=== PATIENT | male | born 1990 | race Caucasian/White ===

== ENCOUNTER 2022-11-19 11:00 | Emergency (ER) | payer SELFPAY ==
[2022-11-19] MEDS ORDERED: Sodium Chloride 0.9% 10 ML Syringe FLUSH PRN (11:23)
[2022-11-19] MEDS ORDERED: Haloperidol Lactate 5 MG/ML SDV IVPUSH ONE ×2 (11:23→12:49)
[2022-11-19 11:58] LABS: ESTIMATED GFR 55 mL/min (>60)
[2022-11-19 12:30] LABS: CORONAVIRUS COVID-19 NAA NEGATIVE (NEGATIVE)
[2022-11-19] MEDS ORDERED: Sodium Chloride 0.9% 1,000 ML IV SCH (13:00)
== END 2022-11-19 15:09 | disposition home or self-care (01) ==
LOC: JP.ED 11:00
DX: R10.11 Right upper quadrant pain (principal); R11.2 Nausea with vomiting, unspecified; E86.0 Dehydration; E87.6 Hypokalemia; F12.90 Cannabis use, unspecified, uncomplicated; Z20.822 Contact with and (suspected) exposure to COVID-19
CPT/HCPCS: 0241U; 36415; 74176; 80053; 83605; 83690; 85025; 86140; 96361; 96374; 96376; 99284; J1630; J3490; J7030

== ENCOUNTER 2022-11-21 10:27 | Observation (INO) | payer SELFPAY ==
[2022-11-21] MEDS ORDERED: Haloperidol Lactate 5 MG/ML SDV IVPUSH ONE ×2 (10:53→14:03)
[2022-11-21] MEDS ORDERED: Sodium Chloride 0.9% 10 ML Syringe FLUSH PRN ×2 (10:53→15:56)
[2022-11-21] MEDS ORDERED: HYDROmorphone 1 MG/ML Syringe IVPUSH ONE ×2 (10:55→14:03)
[2022-11-21] MEDS ORDERED: Sodium Chloride 0.9% 1,000 ML IV SCH ×3 (11:00→14:30)
[2022-11-21 11:30] LABS: ESTIMATED GFR 76 mL/min (>60)
[2022-11-21] MEDS ORDERED: Potassium Chloride 10 MEQ in Premix Bag 1 BAG IV ONE ×2 (11:44→14:16)
[2022-11-21 11:52] LABS: CORONAVIRUS COVID-19 NAA NEGATIVE (NEGATIVE)
[2022-11-21] MEDS ORDERED: Nicotine Polacrilex 2 MG Gum CHEW PRN (15:23)
[2022-11-21] MEDS ORDERED: Acetaminophen 325 MG Tab PO PRN (15:56)
[2022-11-21] MEDS: Ondansetron 4 MG/2 ML SDV IV PRN (16:12)
[2022-11-21] MEDS: Nicotine 14 MG/24 Hr Patch TRDERM SCH (16:12)
[2022-11-21] MEDS: oxyCODONE 5 MG Tab PO PRN (16:12)
[2022-11-21] MEDS: Potassium Chloride 20 MEQ Tab.ER PO ONE ×3 (17:22→20:16)
[2022-11-21] MEDS: Pantoprazole 40 MG Vial IVPUSH SCH (17:22)
[2022-11-21] MEDS: Potassium Chloride 10 MEQ in Premix Bag 1 BAG IV SCH ×4 (17:23→21:33)
[2022-11-21] MEDS: LORazepam 2 MG/ML SDV IV PRN (17:33)
[2022-11-21] MEDS: traZODone 50 MG Tab PO SCH (20:16)
[2022-11-21] MEDS: Methocarbamol 500 MG Tab PO SCH (20:16)
[2022-11-21] MEDS: hydrOXYzine HCl 25 MG Tab PO SCH (20:17)
[2022-11-21] MEDS: Gabapentin 300 MG Cap PO SCH (20:17)
[2022-11-21] MEDS: Propranolol 40 MG Tab PO SCH (20:17)
[2022-11-21] MEDS: Sodium Chloride 0.9% 1,000 ML IV SCH (22:40)
[2022-11-22] MEDS: Ondansetron 4 MG/2 ML SDV IV PRN ×3 (05:07→18:16)
[2022-11-22] MEDS: Pantoprazole 40 MG Vial IVPUSH SCH ×2 (05:08→16:10)
[2022-11-22] MEDS: Sodium Chloride 0.9% 1,000 ML IV SCH ×2 (05:11→12:35)
[2022-11-22] MEDS ORDERED: Propofol 200 MG/20 ML SDV ONE (06:50)
[2022-11-22] MEDS ORDERED: fentaNYL 50 MCG/ML SDV ONE (06:50)
[2022-11-22] MEDS ORDERED: Midazolam 1 MG/ML 2 ML SDV ONE (06:50)
[2022-11-22] MEDS: oxyCODONE 5 MG Tab PO PRN ×3 (08:08→20:14)
[2022-11-22] MEDS ORDERED: Scopolamine 1.5 MG Transdermal Patch TOP SCH (08:30)
[2022-11-22] MEDS: LORazepam 2 MG/ML SDV IV PRN ×2 (08:57→20:14)
[2022-11-22] MEDS: Gabapentin 300 MG Cap PO SCH ×3 (09:49→20:16)
[2022-11-22] MEDS: hydrOXYzine HCl 25 MG Tab PO SCH ×3 (09:49→20:17)
[2022-11-22] MEDS: Methocarbamol 500 MG Tab PO SCH ×3 (09:50→20:14)
[2022-11-22] MEDS: Propranolol 40 MG Tab PO SCH ×2 (09:50→20:17)
[2022-11-22] MEDS: Nicotine 14 MG/24 Hr Patch TRDERM SCH (09:53)
[2022-11-22] MEDS: traZODone 50 MG Tab PO SCH (20:14)
[2022-11-23] MEDS: Sodium Chloride 0.9% 1,000 ML IV SCH (00:41)
[2022-11-23] MEDS: oxyCODONE 5 MG Tab PO PRN ×2 (02:12→07:20)
[2022-11-23] MEDS: Ondansetron 4 MG/2 ML SDV IV PRN ×2 (02:12→07:20)
[2022-11-23] MEDS: Pantoprazole 40 MG Vial IVPUSH SCH (04:49)
[2022-11-23] MEDS: hydrOXYzine HCl 25 MG Tab PO SCH ×2 (08:14→14:56)
[2022-11-23] MEDS: Gabapentin 300 MG Cap PO SCH ×2 (08:15→14:56)
[2022-11-23] MEDS: Propranolol 40 MG Tab PO SCH (08:15)
[2022-11-23] MEDS: Nicotine 14 MG/24 Hr Patch TRDERM SCH (08:15)
[2022-11-23] MEDS ORDERED: VERIFY SCOP PATCH TOP SCH (09:00)
[2022-11-23] MEDS: Methocarbamol 500 MG Tab PO SCH ×2 (09:13→14:56)
== END 2022-11-23 16:52 | disposition home or self-care (01) ==
LOC: JP.ED 10:27 → JP.MS 14:29
PROVIDERS: ADMIT Hospitalist; ATTEND Hospitalist
DX: K31.89 Other diseases of stomach and duodenum (principal); K44.9 Diaphragmatic hernia without obstruction or gangrene; K29.70 Gastritis, unspecified, without bleeding; K22.10 Ulcer of esophagus without bleeding; K25.9 Gastric ulcer, unspecified as acute or chronic, without hemorrhage or perforation; E86.0 Dehydration; E87.6 Hypokalemia; F12.90 Cannabis use, unspecified, uncomplicated; G43.D1 Abdominal migraine, intractable; K21.9 Gastro-esophageal reflux disease without esophagitis; Z20.822 Contact with and (suspected) exposure to COVID-19; Z79.899 Other long term (current) drug therapy; Z90.49 Acquired absence of other specified parts of digestive tract
CPT/HCPCS: 0241U; 36415; 43239; 80048; 80053; 83605; 83690; 85025; 87081; 88305; 96361; 96365; 96366; 96375; 96376; 99284; A9270; C9113; G0378; J1170; J1630; J2060; J2250; J2405; J2704; J3010; J3480; J7030; 99221; 99231; 99238